=== PATIENT | male | born 1975 | race Caucasian/White ===

== ENCOUNTER 2025-04-10 18:45 | Emergency (ER) | payer BC, SELFPAY ==
[2025-04-10] VITALS (8 sets, daily range): BP systolic 124–154; BP diastolic 93–106; PULSE 63–78; RESP 12–18; TEMP 36.2–36.8; O2SAT 94–96; BMI 30.3
--- NOTE | 2025-04-10 18:59 | ED.GENADULT ---
HPI - General Adult General Time Seen by Provider: 18:59 Date Seen: 04/10/25 Chief complaint: Shortness of Breath/Dyspnea Stated complaint: chest pain/tingling, dizzy Time Seen by Provider: 04/10/25 18:58 Source: patient and RN notes reviewed Mode of arrival: ambulatory Limitations: no limitations History of Present Illness HPI narrative: This 49-year-old male is coming in accompanied by his with episodes of chest discomfort. He has noted symptoms with exertion, certainly going up the steps, where he will feel chest heaviness or tightness, feel short of breath with it, get lightheaded. Sometimes he has even felt a sense of numbness tingling in his feet when this happens. Does have some underlying heartburn but it is not associated with these symptoms, is completely different. There is no abdominal pain. He does not exercise. He has been on tirzepatide with weight loss of about 20 lb. He had went to a wellness clinic about 9 months ago, states his glucose was prediabetic range and has been taking this medicine. He has no prior history of any cardiac issues, no pulmonary issues, no history of asthma. He is a nonsmoker, no illicit drug use. He has not been to a physician since moving to [place] over 3 years ago. On his dad side of the family there are kidney issues. On his mom's side of the family he has an uncle and a grandfather who had heart attacks. His current symptoms have been present for about 3 or 4 weeks now. Patient's symptoms have really progressed in the last 3-4 weeks. He notes shortness of breath if he goes on a walk with his , that probably really was not there prior to month ago. Going up steps is when he really notices the intensity of feeling lightheaded, short of breath, chest discomfort, he states it is the point he feels like he could almost pass out at times. Related Data Previous Rx's ?Medication ?Instructions ?Recorded metoprolol succinate 25 mg 25 mg PO DAILY #7 tabs 04/10/25 tablet,extended release 24 hr rosuvastatin 10 mg tablet 10 mg PO DAILY #7 tabs 04/10/25 Allergies Allergy/AdvReac Type Severity Reaction Status Date / Time No Known Drug Allergies Allergy Verified 04/10/25 18:55 Review of Systems Status of ROS: Reports: 6 or more systems reviewed and unremarkable except as noted in History and below [facility] Social History Smoking Status: Never smoker Second hand tobacco smoke exposure: No How often do you have a drink containing alcohol: never AUDIT-C Alcohol total score: 0 Non-prescribed substance use: denies use Exam Const: Vital Signs, click to edit/add: Vital Signs - 24 hr 04/10/25 18:55 04/10/25 19:15 04/10/25 19:32 Temperature 97.2 F L Pulse Rate 67 Pulse Rate [Pulse Oximeter] 78 Respiratory Rate 18 18 Blood Pressure 137/99 H Blood Pressure [Ri ght Upper Arm] 154/106 H Pulse Oximetry 94 96 95 Oxygen Delivery Me thod Room Air This 49-year-old male is alert, interactive, no apparent distress. He is ambulatory in the ED of his own accord. Pupils are equal round reactive, sclera clear, symmetrical facial function, speech normal. Neck thicker but no jugular venous distension, no adenopathy, no thyromegaly masses or nodules. Sits up easily, lungs are clear, good air entry, wheeze or crackles, no tachypnea, no accessory muscle use. CV regular rate and rhythm, no murmur, normal S1-S2, no S3-S4. Abdomen is soft, nontender, nondistended, organomegaly, rebound or guarding, no masses. He has no lower extremity edema. Documenting provider has reviewed patient's vital signs: yes Course Course ED Course: Patient did have a baseline EKG which have reviewed. He will be on cardiac monitoring, pulse oximetry to look for arrhythmia or hypoxia. Will get a portable chest x-ray. Will get a full complement of labs. His history really does concern me for angina and ischemic disease. He has been on the tirzepatide as well, he could have some presenting atypical GI symptoms from this medication. The weight loss he is reporting would hopefully help him be improving from cardiovascular risk factors but it does not mean that he could not have ischemia. Reevaluation(s) Time of Reevaluation #1: 19:51 Reevaluation #1: Did review initial labs being normal with patient. His CBC, comprehensive metabolic panel, lipase and D-dimer are all normal. Reviewed that his glucose is normal. He was concerned about the pre diabetes, reviewed with him if he has really had 20 lb of weight loss over this last 6 months that he is probably done a lot to help make that go away. We are waiting on the troponin. Time of Reevaluation #2: 20:28 Consultations Consultation #1: Did review case with Dr. Oshea boilermaker on-call from [facility]. He states that patient can be discharged to home with stress test early next week. He recommends placing the patient on baby aspirin, beta myke and statin in the interim. Return to ED precautions with worsening symptoms advised. Time: 20:13 Vital Signs Vital signs: Initial Vital Signs Temperature 97.2 F L 04/10/25 18:55 Temperature Source Temporal Artery Scan 04/10/25 18:55 Pulse Rate 78 04/10/25 18:55 Respiratory Rate 18 04/10/25 18:55 Blood Pressure 154/106 H 04/10/25 18:55 Blood Pressure Mean 122 H 04/10/25 18:55 Pulse Oximetry 94 04/10/25 18:55 Oxygen Delivery Method Room Air 04/10/25 18:55 Vital Signs Temperature 97.2 F L 04/10/25 18:55 Pulse Rate 78 04/10/25 18:55 Respiratory Rate 18 04/10/25 18:55 Blood Pressure 154/106 H 04/10/25 18:55 Pulse Oximetry 94 04/10/25 18:55 Oxygen Delivery Method Room Air 04/10/25 18:55 Temperature 97.2 F L 04/10/25 18:55 Pulse Rate 67 04/10/25 19:32 Respiratory Rate 18 04/10/25 19:32 Blood Pressure 137/99 H 04/10/25 19:32 Pulse Oximetry 95 04/10/25 19:32 Oxygen Delivery Method Room Air 04/10/25 18:55 Medical Decision Making Lab Data Lab results reviewed: Yes I reviewed the patient's lab results Labs: Lab Results 04/10/25 Range/Units 19:15 WBC 9.37 (4.50-11.00) K/uL RBC 5.42 (4.30-5.90) m/uL Hgb 16.5 (13.5-17.5) gm/dL Hct 48.6 (37.0-53.0) % MCV 90 (80-100) fL MCH 30 (26-34) pg MCHC 34 (32-36) gm/dL RDW Coeff of Kyle 13.2 (11.5-15.5) % Plt Count 262 (140-440) K/uL Neut % (Auto) 51.9 (42.0-72.0) % Lymph % (Auto) 36.5 (20-44) % [place] % (Auto) 9.1 (0.0-11.0) % Eos % (Auto) 2.2 (0.0-7.0) % Baso % (Auto) 0.2 (0.0-3.0) % Neut # (Auto) 4.86 (1.7-7.0) K/uL Lymph # (Auto) 3.42 H (0.90-2.90) K/uL [place] # (Auto) 0.90 (0.00-0.90) K/UL Eos # (Auto) 0.21 (0.00-0.50) K/uL Baso # (Auto) 0.02 (0.00-0.30) K/uL Abs Immat Gran (auto) 0.01 (0.00-0.30) K/uL Imm/Tot Granulo (auto) 0.1 % D-Dimer Quant (PE/DVT) < 0.27 (0.00-0.50) ug/ml Sodium 135 (135-149) mmol/L Potassium 3.9 (3.6-5.1) mmol/L Chloride 102 (96-114) mmol/L Carbon Dioxide 27 (20-32) mmol/L Anion Gap 6 L (7-15) mEq/L BUN 11 (5-24) mg/dL Creatinine 1.1 (0.5-1.5) mg/dL Estimated Creat Clear 78.59 Estimated GFR 82 ml/min Glucose 94 (60-115) mg/dL Lactate 1.0 (0.5-1.9) mmol/L Calcium 9.1 (8.4-10.6) mg/dL Magnesium 1.8 (1.5-2.6) mg/dL Total Bilirubin 0.5 (0.1-1.5) mg/dL AST 18 (12-35) U/L ALT 18 (4-50) U/L Alkaline Phosphatase 55 (40-150) U/L Troponin I < 0.01 (0.01-0.04) ng/mL C-Reactive Protein < 0.5 L (0.5-1.0) mg/dL NT-Pro-B Natriuret Pep < 20 (See Note) pg/mL Total Protein 7.2 (6.0-8.3) g/dL Albumin 4.3 (3.3-5.0) g/dL Lipase 220 (23-300) U/L Imaging Data Chest x-ray: Attestation: I have reviewed the pertinent imaging results. Radiologist's impression: Patient: JOHN ALBERTO Facility:?[facility] Patient ID:?[id number] Site Patient ID:?[id number]. Site :?[id number] Study:?XRay-Chest PORTABLE-04/10/2025 7:26:27 PM Ordering Physician:Yusra Francisco Final Report: INDICATION: Chest pain. TECHNIQUE: Chest 1 views. COMPARISON: None. FINDINGS: Cardiovascular and mediastinum: Heart size and vasculature are normal in caliber and appearance. Lungs and pleural spaces: Lungs are clear. No sign of infiltrate or mass. No sign of pleural effusion. No pneumothorax. Bones and soft tissues: No significant findings. IMPRESSION: No acute or significant findings. Dictated by Efren Lyn MD @ 04/10/2025 7:33:32 PM (Electronic Signature) ECG Data Attestation: I personally reviewed and interpreted this ECG as follows: (Normal sinus rhythm with sinus arrhythmia, 63 beats per minute. Flipped T-waves lead 3, flattening AVF. No significant ST segment change.) Prior ECG tracings: not available for review Discharge Plan Discharge Clinical Impression: Chest pain, Exertional shortness of breath, Dizziness Patient Disposition: Home, Self-Care Condition: Stable Instructions: Chest Pain (ED), Shortness of Breath (ED) Additional Instructions: Need to take an 81 mg aspirin daily for the time being. Will put her on metoprolol XL 25 mg daily until we have results from a cardiac stress test, this can help decrease the work load of the heart and thus increase blood flow. Will also start cholesterol medicine as well. We will work on getting cardiac stress test prior authorized an order through our facility if needed. Please work through your company to see if they can get 1 done quicker. I would recommend an exercise stress echo if that can possibly be done. In the meantime, minimize activity, do not do things that increase your symptoms or will escalate your heart rate. You may need to take your steps very very slowly. If you have any increase in chest pain, rest chest pain, worsening of your symptoms, please seek re-evaluation. Activity Level: No strenuous activity Prescriptions: New metoprolol succinate 25 mg tablet extended release 24 hr 25 mg PO DAILY Qty: 7 0RF rosuvastatin 10 mg tablet 10 mg PO DAILY Qty: 7 0RF Follow Up/Referrals: Provider,Not a Local [Primary Care Provider, Family Practice] Stand Alone Forms: tomoguides Info Instructions
--- NOTE | 2025-04-10 19:09 | CRLHL7_ITS ---
For Patients: As a result of the Century Cures Act, medical imaging exams and procedure reports are released immediately into your electronic medical record. You may view this report before your referring provider. If you have questions, please contact your health care provider. INDICATION: Chest pain. TECHNIQUE: Chest 1 views. COMPARISON: None. FINDINGS: Cardiovascular and mediastinum: Heart size and vasculature are normal in caliber and appearance. Lungs and pleural spaces: Lungs are clear. No sign of infiltrate or mass. No sign of pleural effusion. No pneumothorax. Bones and soft tissues: No significant findings. IMPRESSION: No acute or significant findings. Dictated by Efren Lyn MD @ 04/10/2025 7:33:32 PM (Electronically Signed)
[2025-04-10 19:20] LABS: Lactate* 1.0 mmol/L (0.5-1.9)
[2025-04-10 19:29] LABS: Hematocrit* 48.6 % (37.0-53.0); Hemoglobin* 16.5 gm/dL (13.5-17.5); Immature Granulocytes Abs Auto 0.01 K/uL (0.00-0.30); Immature Granulocytes Pct Auto 0.1 %; Lymphocytes Absolute Auto 3.42 K/uL (0.90-2.90); Mean Corpuscular HGB Conc 34 gm/dL (32-36); Mean Corpuscular Hemoglobin 30 pg (26-34); Mean Corpuscular Volume 90 fL (80-100); RDW Coefficient of Variation % 13.2 % (11.5-15.5); Red Blood Count* 5.42 m/uL (4.30-5.90); Slide Review Reflex No; White Blood Count* 9.37 K/uL (4.50-11.00)
[2025-04-10 19:40] LABS: Albumin* 4.3 g/dL (3.3-5.0); Chloride* 102 mmol/L (96-114); Potassium* 3.9 mmol/L (3.6-5.1); Sodium* 135 mmol/L (135-149)
[2025-04-10 19:42] LABS: Blood Urea Nitrogen* 11 mg/dL (5-24); Creatinine* 1.1 mg/dL (0.5-1.5); D Dimer Quantitative* < 0.27 ug/ml (0.00-0.50); Est. Creatinine Clearance* 78.59; Estimated Glomerular Filt Rate 82 ml/min
[2025-04-10 19:43] LABS: Alanine Aminotransferase* 18 U/L (4-50); Alkaline Phosphatase* 55 U/L (40-150); Anion Gap 6 mEq/L (7-15); Aspartate Amino Transferase* 18 U/L (12-35); Bilirubin Total* 0.5 mg/dL (0.1-1.5); Carbon Dioxide* 27 mmol/L (20-32); Total Protein* 7.2 g/dL (6.0-8.3)
[2025-04-10 19:44] LABS: Calcium* 9.1 mg/dL (8.4-10.6); Glucose* 94 mg/dL (60-115)
[2025-04-10 19:57] LABS: NT Pro B Type NatriureticPept* < 20 pg/mL (See Note)
[2025-04-10] MEDS: ROSUVASTATIN CALCIUM 10 MG TABLET PO (21:14)
[2025-04-10] MEDS: ASPIRIN 81 MG TAB.CHEW PO (21:15)
[2025-04-10] MEDS: METOPROLOL SUCCINATE (XL) 25 MG TAB PO (21:15)
== END 2025-04-10 21:31 | disposition home or self-care (01) ==
PROVIDERS: Emergency Provider Family Medicine
DX: R06.02 Shortness of breath (principal)
CPT/HCPCS: 36415; 71045; 80053; 83605; 83690; 83735; 83880; 84484; 85025; 85379; 86140; 93005; 94761; 99284; 99285; A9270

== ENCOUNTER 2025-04-29 12:50 | Outpatient (CLI) | payer BC, SELFPAY ==
[2025-04-29] MEDS: PERFLUTREN LIPID MICROSPHERES 2 ML VIAL IVP (13:40)
--- NOTE | 2025-04-29 13:44 | W.PM.STED ---
Stress Test Note Date Date Seen: 04/29/25 Date of test: 04/29/25 Providers Primary care provider: Tanner Dumont Stress test physician: Maryam Sumner Stress Test Note Stress test ordered: Stress Echo Indication for test: Chest pain Stress test medicine: Definity Results discussion: Resting EKG: Sinus rhythm, 64 beats per minute, some baseline artifact. Resting blood pressure: 128/84 Stress test: Patient is consented on ordered stress test of treadmill stress echo and agrees to proceed. Standard Rinku protocol is followed. Patient was noted to have ventricular ectopy in the setting of significant baseline artifact, it did become evident though that there was significant thick tracheal ir ectopy, saw some single tends, saw couplets triplets up to 4 in 6 beat runs. Patient maintained asymptomatic status. I did see him go into trigeminy towards the end of the 6 minute interval. After 6 minutes, he was able to continue exercising and the ventricular ectopy/asymptomatic nonsustained ventricular tachycardia abated. He was able to go to 9 minutes and 40 seconds, equivalent to 11.1 Mets. He had a maximum heart rate of 161 beats per minute which was 111% of a calculated target heart rate of 145. Rate pressure product was 26,404. There were no diagnostic ischemic changes on this EKG. Patient had no chest symptoms, no chest pain, no concerning shortness of breath. He was asymptomatic through the ventricular ectopy and the nonsustained ventricular tachycardia. Will await echo images to couple this for a full formal diagnostic. Did talk to Dr. Nelson tap and die maker technician from [facility]. We reviewed patient's history and his cardiac stress test. The echo images that were done today at already been read, negative for ischemia. He did request that the patient go up to 50 mg of his metoprolol XL. Patient had just completed a ZIO patch but has not turned in yet. We will get those results. We will attempt to get this patient scheduled with Cardiology. If patient has any concerning changes, increasing chest symptoms in the interim, we should certainly update [facility] as considerations for further study of this patient would likely be recommended. Impression: Subjectively negative, objectively negative EKG for ischemia but ventricular ectopy and asymptomatic nonsustained ventricular tachycardia noted. Follow up suggested: Have left a message with the patient to call me back. At discharge, had told him to resume his metoprolol. Did leave him a message that we want to increase this. Will attempt to work with the clinic to get him scheduled with Cardiology. He needs to get his Zio patch turned in so this can be read. Was able to touch base with [place]. We are going to increase his metoprolol XL to 50 mg daily. He will take 2 of his 25 mg to finish out his current prescription, states he does not have much left, I will send an a prescription for the metoprolol XL 50 mg. He will work on getting the ZIO patch monitor in. We did get him scheduled for cardiology appointment here at [place] with [facility] on June 12 but that had to be canceled as he will be out of town. He will need to get a referral with Dr. Dumont and work on Cardiology appointment. He has a follow-up next week with him. Did review with patient that the echo images are not showing any evidence of ischemic change. He will still be important for him to secure an appointment with Cardiology to review all of this, decide if they need further studies. Some of this will be based on the Zio patch monitor results.
[2025-04-29 13:46] VITALS: BP 120/80; PULSE 105; RESP 18
== END 2025-04-29 13:48 | disposition home or self-care (01) ==
LOC: STRESS 12:50
PROVIDERS: PCP Family Medicine; Visit Provider Family Medicine
DX: R07.9 Chest pain, unspecified (principal)
CPT/HCPCS: 93016; 93325; 93351; Q9957